=== PATIENT | female | born 2000 ===

== ENCOUNTER 2024-07-13 07:23 | Inpatient (IN) | payer MEDICAID, SELFPAY ==
[2024-07-13] VITALS (11 sets, daily range): BP systolic 104–129; BP diastolic 61–84; PULSE 77–106; RESP 16–18; TEMP 36.8–37.2; O2SAT 98; BMI 24.7
[2024-07-13] MEDS: OXYTOCIN 10 UNIT/ML INJ IM (07:59)
[2024-07-13] MEDS: miSOPROStoL 800 MCG/4 TABLET PR (08:02)
[2024-07-13] MEDS: LIDOCAINE 1 % PF 30 ML INJECTION ×2 (08:10→08:42)
--- NOTE | 2024-07-13 09:15 | W.PM.OBVAGDE ---
OB Procedure Vag Delivery Mother Details Mother Details: The patient is a 24 year-old, 6, Para 2, admitted on 07/13/24 at 37+2 Days gestation. Presented to the ED in labor. Reported contractions starting 0500. Cervix found to be 9.5 cm in L&D. FHT category I. Progressed to complete at 0735. Begain pushing 0738. AROM for clear fluid 0745. Vigorous male delivery over an intact perineum in the OA position at 0757. Placed on the maternal chest. Cord cut and clamped after 30-60 second delay. There was active management of the third stage with IM pitocin. 800 mcg rectal cytotec was given after several large gushes of blood. Subsequent slowing of bleeding. Placental delivered spontaneously at 0800. 3 vessel, appeared complete, several calcifications noted. Vaginal exam revealed a second degree perineal laceration and tiny left vaginal first degree. There was also an approximately 1 cm right distal vaginal fluid-filled cyst. With patient consent, this was excised and sent to pathology. There was return of watery, white fluid with excision. Lacerations were repaired in the usual fashion. Fundus was firm and bleeding appropriate. QBL 400 cc. Sponge and need counts were correct. Mom and baby are resting comfortably. : 6 Para: 2 Weeks Gestation: 37.2 Admission Date: 07/13/24 Additional Details Amniotic Membrane Status: AROM Amniotic Membrane Rupture Date: 07/13/24 Amniotic Membrane Rupture Time: 07:45 Amniotic Membrane Fluid Description: Clear Analgesia/Anesthesia Type: None Waterbirth: No Pitcoin: No Intrapartal Events: Precipitous Labor <3 Hrs Labor Onset: 05:00 Complete: 07:35 Pushin:38 Heart: heart tones during second stage were category II. Variable deceleration with , rapid recovery. Delivery Details Delivery Date: 07/13/24 Delivery Time: 07:57 Route of delivery: Infant Gender: Male Viability: Alive; Heart Rate Present Position at Delivery: OA Delivery Details: Delivered over intact perineum via spontaneous vaginal delivery. was placed on maternal abdomen.? Cord was clamped and cut after a 30-60 second delay. Nose and mouth were bulb suctioned.? weight pending. 1 Minute Interval Total Score: 9 5 Minute Interval Total Score: 9 Additional Details Shoulder Dystocia: No Placenta Delivery Time: 08:07 Placental Delivery Description: Spontaneous Delivery repair: Vicryl Procedure Done: Global Blood Loss: 400 Laceration: Vaginal - 1st Degree (left) Episiotomy Description: None Blood Loss Measurement Type: QBL Bakri Used: No Sponge/Need Count Correct: Yes Cord Vessel Description: 3 Vessels Event Summary Status: Mother and infant were stable after delivery. Disposition: floor
[2024-07-13] MEDS: IBUPROFEN 600 MG TABLET PO ×2 (09:31→19:23)
--- NOTE | 2024-07-13 09:31 | PM.OBHPLI ---
OB - H&P: HPI Labor/Induction History of Present Illness Time Seen by Provider: 07:30 Date Seen: 07/13/24 Chief Complaint: The patient is a 24 year old 6 para 2 at 37+2 weeks gestation, who presents with active labor and precipitous delivery. Chief complaint: Maternity : 6 Para: 2 Narrative: Glenny Villegas is a 24 year old female at 37+2 weeks who presented to the ED with active labor. Patient resides in [place], [place]. She was visiting [place] with her family to celebrate her younger daughter's first birthday. Contractions started at 0500 on the day of admission. Family started the trip back to [place], but labor progressed rapidly. They stopped at [facility] as this was along their route. Patient was found to be 9.5 cm on admission, progressed to complete and delivered a vigorous male at 0757. Mom and baby are now resting comfortably. records have been requested, not yet received. Patient reports her has been uncomplicated. GBS was collected at her home clinic; she has not yet received the results. Delivery of her older daughter at 37 weeks, she reports uncomplicated and delivery. Second daughter delivered at 26 weeks; patient reports labor. She states was otherwise uncomplicated. Reports she is healthy. No prescription medications. Plans to bottle feed. Family is unsure if they desire circumcision. History of Present care: other ([place], [place]. records requested, not yet received) Ultrasounds: other (Patient reports normal 20 week ultrasound) Labs GBS status: unknown (GBS swab collected at home clinic, records not yet received) Review of Systems Status of ROS: Reports: 10 or more systems reviewed and unremarkable except as noted in History and below Meds Home Medications and Allergies Allergies Allergy/AdvReac Type Severity Reaction Status Date / Time No Known Drug Allergies Allergy Verified 07/13/24 07:40 OB - H&P: Exam Physical Exam: Vital signs: Pulse BP 102 H 108/84 07/13/24 09:25 07/13/24 09:25 Narrative: General appearance: Well-appearing adult female. Alert, oriented and appropriate. Lying in hospital bed. HEENT: EOMI, no conjunctival injection or discharge. MMM. Neck: Supple. CV: RRR, no rubs, murmurs or extra heart sounds. Pulm: CTAB, no wheezes, rales or rhonchi. Abdomen: Gravid. MSK: Moving all extremities. Ext: Warm and well-perfused. No LE edema. Skin: No rashes appreciated over exposed skin. Neuro: Grossly normal strength and sensation. No focal deficits. Psych: Normal affect. OB - Problem Based A/P Additional Plan (1) Term : Problem details: Resides in [place], [place]. Visiting [place] for the weekend. Precipitous vaginal delivery. Reports uncomplicated . Status: Acute Plan: - Normal post- cares - GBS collected at home clinic in [place]. Await records - Plans to bottle feed - Anticipate discharge after 1-2 midnights (2) Precipitous delivery: Status: Acute
[2024-07-13] MEDS: ACETAMINOPHEN 500 MG TABLET 1000 MG PO (14:17)
[2024-07-14] MEDS: ACETAMINOPHEN 500 MG TABLET 1000 MG PO ×2 (00:39→11:04)
[2024-07-14 00:41] VITALS: BP 112/77; PULSE 90; RESP 20; O2SAT 97
[2024-07-14 04:00] VITALS: BP 96/66; PULSE 98; RESP 20; O2SAT 98
[2024-07-14 06:27] LABS: Hemoglobin* 10.1 gm/dL (12.0-16.0)
[2024-07-14 07:41] LABS: Hepatitis C Virus Antibody* Negative (Negative)
[2024-07-14 07:46] LABS: Hepatitis B Surface Antibody* Negative (Negative)
[2024-07-14 08:01] VITALS: BP 110/72; PULSE 69; RESP 16; TEMP 36.9; O2SAT 99
[2024-07-14] MEDS: IBUPROFEN 600 MG TABLET PO (08:03)
[2024-07-14] MEDS: DOCUSATE SODIUM 100 MG CAPSULE PO (08:04)
[2024-07-14 08:18] LABS: HIV 1/2/P24 Combo Screen* Negative (Negative)
--- NOTE | 2024-07-14 11:10 | P.DS_ITS ---
DS: Providers Provider Time Seen by Provider: 07:30 Date Seen: 07/14/24 Date of admission: 07/13/24 07:23 Primary care physician: Not a Local Provider Admitting Clinician: Airam Henry MD Attending Physician on discharge: Princess Sarabia MD Date of Discharge: 07/14/24 DS: Diagnosis Discharge Diagnosis (1) Precipitous delivery: Status: Acute (2) Term : Status: Acute Problem details: Resides in [place], [place]. Visiting [place] for the weekend. Precipitous vaginal delivery. Reports uncomplicated . GBS negative (3) Back pain: Status: Acute Problem details: describes aching back pain today. Improves with heat/ibuprofen. Diffusely tender in musculature, no deformity noted. Encouraged supportive cares and follow up if not improving/if worsening Exam Const: Vital Signs, click to edit/add: Vital Signs - 24 hr 07/13/24 11:54 07/13/24 16:15 07/13/24 19:53 Temperature 98.2 F 98.9 F 98.6 F Pulse Rate [Pulse Oximeter] 81 83 77 Respiratory Rate 16 16 18 Blood Pressure [Ri ght Arm] 114/73 104/67 120/76 Pulse Oximetry 98 Oxygen Delivery Me thod Room Air Room Air Room Air 07/14/24 00:41 07/14/24 04:00 07/14/24 08:01 Temperature 98.4 F Pulse Rate [Pulse Oximeter] 90 98 69 Respiratory Rate 20 20 16 Blood Pressure [Ri ght Arm] 112/77 96/66 110/72 Pulse Oximetry 97 98 99 Oxygen Delivery Me thod Room Air Room Air Room Air Common normals: no apparent distress and oriented x3 General appearance: cooperative HENMT: Common normals: normocephalic Head and scalp: normocephalic Neck & C-Spine: Common normals: full ROM Lymph: Lymphatic: no lymphadenopathy noted Resp: Common normals: normal respiratory effort Cardio: Common normals: regular rate and regular rhythm Rate: regular rate Rhythm: regular rhythm GI: Common normals: soft to palpation Inspection: normal to inspection Palpation: soft : Bladder/kidney exam: no CVA tenderness Uterus: 3/U and firm Manual OB Exam: deferred Back & Pelvis: General back: no CVA tenderness Lumbar spine/lower back: normal to inspection and lumbar spinal tenderness (minimal) Extremity: Common normals: normal to inspection and full ROM Neuro: Common normals: oriented x3 Psych: Appearance: grossly normal Skin: Common normals: no rashes or lesions noted General skin exam: no rashes or lesions noted OB - DS: Summary Hospital Course Hospital Course: The patient is a 24 year old G 6 P 3 at 37.2 weeks gestation that was admitted to the Center on 07/13/24 for labor. She had an precipitous vaginal delivery. She delivered a viable male . She is bottle feeding. the patient has done well. Patient lives in [place]. Was visiting [employer], went into labor and had to pull off highway to deliver with us. Partial labs/records reviewed. GBS negative. No Rubella status noted. HIV, Hep B and Hep C labs normal here. Peripartum Data Infant delivery method: Vaginal Laceration description: Perineal - 2nd Degree complications: none Gender: Male Discharge Plan: Home Status at Discharge Functional status at discharge: independent ambulation Overall status at discharge: patient is back to baseline Time Spent with Patient Time attestation: Total time spent providing and/or coordinating discharge services: Time spent: Less than 30 minutes Discharge Plan Discharge Disposition: Home, Self-Care Date of Admission: 07/13/24 07:23 Attending Provider on Discharge: Princess Sarabia Primary Care Provider: Provider,Not a Local Condition: Improved Anticipated Discharge Date/Time: 07/14/24 11:07 Discharge Medications: No Action No Known Home Medications Discharge Orders: Discharge Order (Routine); Ordered 07/14/24 Ordered By: Princess Sarabia Patient Education: OB Vaginal/Bottle Feeding Activity Level: No Restrictions Discharge Diet: Regular Follow Up Appointments: Provider,Not a Local [Primary Care Provider] - Forms: [employer] Info Instructions Discharge Comments: Follow up in 6 weeks with your OB for examination.
--- NOTE | 2024-07-14 12:23 | PC.NURSE ---
Reviewed records and did not see a rubella checked during . Called patients [facility]. Was transferred to medical records and had to leave a voicemail. Discussed case with Dr. Sarabia. Dr. Sarabia recommended checking a rubella titer while here and waiting for results to determine if MMR is needed. Patient declined and will call her clinic tomorrow to inquire about test and if it was completed and what the results are.
[2024-07-16 01:21] LABS: Rapid Plasma Reagin (RPR) Non Reactive (Non Reactive)
== END 2024-07-14 12:31 | disposition home or self-care (01) | DRG 560 ==
PROVIDERS: Admitting Provider Family Medicine; Visit Provider Family Medicine
DX: O62.3 Precipitate labor (principal); O70.1 Second degree perineal laceration during delivery; Z3A.37 37 weeks gestation of pregnancy; Z37.0 Single live birth; O90.89 Other complications of the puerperium, not elsewhere classified; M54.9 Dorsalgia, unspecified
CPT/HCPCS: 36415; 85018; 86592; 86703; 86706; 86803; 88305; A9270; J2003; J2590